=== PATIENT | female | born 1975 | race Caucasian/White ===

== ENCOUNTER 2024-03-17 07:51 | Outpatient (CLI) | payer BC, SELFPAY ==
--- NOTE | ~2024-03-17 | CT_ITS ---
EXAMINATION: CT chest abdomen pelvis w con DATE: 03/17/2024 08:52 INDICATION: Invasive ductal carcinoma of breast. TECHNIQUE: Computed tomography (CT) of the chest, abdomen, and pelvis was performed with 100 mL Omnip aque 350 intravenous contrast. Automated exposure control and iterative reconstruction technique were employed. The dose-length product was 862.62 mGy-cm. COMPARISON: None FINDINGS: CHEST CT: The lungs demonstrate minimal dependent atelectasis. No pleural effusion. There are nodules in the th yroid measuring up to 14 mm, likely not clinically significant. The heart size is normal. No pericard ial effusion. There are surgical clips in left axilla. There is a collection of fluid and gas in left breast measuring 11.3 x 5.7 x 10.8 cm. There is mild thoracic spondylosis. ABDOMEN/PELVIS CT: The liver is normal. There are changes of cholecystectomy. There are innumerable hypodense masses in the spleen measuring up to 11 mm, most likely granulomatous disease. The pancreas, adrenal glands, an d kidneys are normal. There are no dilated loops of bowel. The appendix is normal. There are no patho logically enlarged lymph nodes. There is physiologic fluid in the pelvis. There is mild lumbar spondy losis. IMPRESSION: 1. No specific evidence of metastatic disease. 2. 11.3 x 5.7 x 10.8 cm collection of fluid and gas in left breast, which may be a seroma. Abscess is not excluded. Reviewed, dictated and finalized at location A. IMPRESSION: 1. No specific evidence of metastatic disease. 2. 11.3 x 5.7 x 10.8 cm collection of fluid and gas in left breast, which may b e a seroma. Abscess is not excluded.
== END 2024-03-17 07:52 | disposition home or self-care (01) ==
PROVIDERS: Visit Provider Internal Medicine Hematology & Oncology
DX: C50.912 Malignant neoplasm of unspecified site of left female breast (principal)
CPT/HCPCS: 71260; 74177; Q9967